=== PATIENT | male | born 1975 | race American Indian/Alaskan Native ===

== ENCOUNTER 2019-07-31 15:30 | Observation (INO) | payer OTHER ==
[2019-07-31] MEDS ORDERED: ZOFRAN IV ONE (16:25)
[2019-07-31] MEDS ORDERED: MORPHINE IV ONE ×2 (16:25→16:26)
[2019-07-31] MEDS ORDERED: NACL 0.9% 1000 ML 1,000 ML IV ONE ×2 (16:26→20:36)
--- NOTE | 2019-07-31 16:37 | Emergency Department Report ---
Vomiting/Diarrhea - HPI Duration: 3 Days Severity: mild Nausea/Vomiting Severity: None (IN ER) Diarrhea Severity: None Pain Location: RLQ Pain Severity: Mild Symptoms: Yes Able to Tolerate Fluids, No Watery Diarrhea, No Bloody diarrhea, No Fever, No Recent Unusual Foods, No Recent Untreated Water, No Recent use of Antibiotics, No Family w/ Similar Symptoms, No Contacts w/ Similar Symptoms, No Hematuria, No Recent URI Symptoms Other History: 43 YO MALE COMES TO ER WITH RLQ PAIN AND N/V FOR SEVERAL DAYS. PT THIN AND ILL APPEARING. <NOAHMannieNEIDA KWAN Dayna - Last Filed: 07/31/19 19:11> <JOÃO PEÑA - Last Filed: 07/31/19 21:36> - HPI Chief Complaint: Abdominal Pain Stated Complaint: STOMACH PAIN Time Seen by Provider: 07/31/19 16:02 ED Review of Systems ROS: Stated complaint: STOMACH PAIN Other details as noted in HPI Comment: All other systems reviewed and negative <NEIDA LAGUNA Dayna - Last Filed: 07/31/19 19:11> ROS: Stated complaint: STOMACH PAIN Other details as noted in HPI <JOÃO PEÑA - Last Filed: 07/31/19 21:36> ED Past Medical Hx - Past Medical History Previous Medical History?: No - Surgical History Past Surgical History?: No - Family History Family history: no significant - Social History Smoking Status: Current Every Day Smoker Substance Use Type: Marijuana <LOLISBlackMannieNEIDA KWAN Dayna - Last Filed: 07/31/19 19:11> Vomiting Diarrhea Exam - Exam General: Vital signs noted. No distress. Alert and acting appropriately. HEENT: No Pharyngeal Erythema, No Pharyngeal Exudates Neck: No Adenopathy, No Rigidity Lungs: Yes Clear Lung Sounds, Yes Good Air Exchange, No Wheezes, No Stridor Heart exam: Regular: Yes, Tachycardia: Yes Abdomen: Tenderness: No, Peritoneal Signs: No, Distention: No, Hyperactive Bowel sounds: No Skin exam: Rash: No Neurologic: Alert and oriented, no deficits. Musculoskeletal: Unremarkable. <NEIDA LAGUNA Dayna - Last Filed: 07/31/19 19:11> - Exam General: Vital signs noted. No distress. Alert and acting appropriately. Neurologic: Alert and oriented, no deficits. Musculoskeletal: Unremarkable. <JOÃO PEÑA - Last Filed: 07/31/19 21:36> ED Course Vital Signs 07/31/19 15:44 Temperature 99.1 F Pulse Rate 113 H Respiratory 20 Rate Blood Pressure 143/80 [Right] O2 Sat by Pulse 98 Oximetry - Reevaluation(s) Reevaluation #1: 07/31/19 18:58 S[facility]A SUP IN RAD NO [id number] WAS CONTACTED BY MYSELF SHE HERSELF TOLD THE STAFF NOT TO SCAN THIS PT DUE TO CONFLICT IN HIS NAME FIRST NAME IS LAST AND VICE VERSA OTHER IDENTIFIERS CORRECT THIS WAS NOTED WHEN PT ARRIVED TO ACC REG. WAS NOTIFIED AND IF THEY CHANGE THE NAME NOW IT WILL DELETE THE CURRENT ACCOUNT AND ALL ASSOCIATED INFORMATION. THEIR REC. IS TO COMPLETE CARE ON THIS ACCOUNT AND WHEN PT DC HE WILL HAVE A NEW ACCOUNT MADE AND THEN THE 2 ACCOUNTS MERGED AND ALL CARE DATA POINTS WILL BE AVAILABLE. I'VE ASKED MS SWAN IF THE CT CAN NOT BE DONE- TO CALL HI LOW TRUCK DRIVER IN REG TO WORK OUT HOW TO HANDLE THIS ENCOUNTER SO THE PT RECEIVES CARE TIMELY DR MIKE ORDERED SCAN AT 1625 <NEIDA LAGUNA - Last Filed: 07/31/19 19:11> Vital Signs 07/31/19 15:44 Temperature 99.1 F Pulse Rate 113 H Respiratory 20 Rate Blood Pressure 143/80 [Right] O2 Sat by Pulse 98 Oximetry <MARIANAJOÃO - Last Filed: 07/31/19 21:36> ED Medical Decision Making - Lab Data Result diagrams: 07/31/19 17:30 07/31/19 17:30 - Medical Decision Making Labs 07/31/19 07/31/19 07/31/19 16:19 17:30 17:30 WBC 9.4 RBC 4.57 Hgb 14.7 Hct 43.5 MCV 95 H MCH 32 MCHC 34 RDW 13.0 L Plt Count 209 Lymph % (Auto) 5.5 L [place] % (Auto) 7.6 H Eos % (Auto) 0.0 Baso % (Auto) 0.1 Lymph # 0.5 L [place] # 0.7 Eos # 0.0 Baso # 0.0 Seg Neutrophils % 86.8 H Seg Neutrophils # 8.1 H Sodium 140 Potassium 4.1 Chloride 103.5 Carbon Dioxide 27 Anion Gap 14 BUN 17 Creatinine 1.1 Estimated GFR > 60 BUN/Creatinine Ratio 15 Glucose 93 Calcium 8.2 L Total Bilirubin 0.80 AST 26 ALT 33 Alkaline Phosphatase 57 Total Protein 7.0 Albumin 4.2 Albumin/Globulin Ratio 1.5 Lipase 9 L Urine Color Yellow Urine Turbidity Clear Urine pH 6.0 Ur Specific [place] 1.034 H Urine Protein 30 mg/dl Urine Glucose (UA) Neg Urine Ketones 20 Urine Blood Neg Urine Nitrite Neg Urine Bilirubin Neg Urine Urobilinogen < 2.0 Ur Leukocyte Esterase Neg Urine WBC (Auto) 1.0 Urine RBC (Auto) 4.0 U Epithel Cells (Auto) < 1.0 Urine Mucus 3+ Vital Signs 07/31/19 15:44 Temperature 99.1 F Pulse Rate 113 H Respiratory 20 Rate Blood Pressure 143/80 [Right] O2 Sat by Pulse 98 Oximetry <LOLISBlackMannieSHEREELONNIENEIDA A - Last Filed: 07/31/19 19:11> - Lab Data Result diagrams: 07/31/19 17:30 07/31/19 17:30 - Radiology Data Radiology results: report reviewed, image reviewed Findings [facility] [address] [place] [address] Cat Scan Report Signed Patient: EARL BLAKE MR#: [id number] : 1975 Acct:[id number] Age/Sex: 43 / M ADM Date: 07/31/19 Loc: ED Attending Dr: Ordering Physician: Tonya Bolaños MD Date of Service: 07/31/19 Procedure(s): CT abdomen pelvis w con Accession Number(s): [id number] cc: Tonya Bolaños MD CT abdomen pelvis w con INDICATION: RLQ pain tenderness . TECHNIQUE: All CT scans at this location are performed using CT dose reduction for ALARA by means of automated exposure control. COMPARISON: None available. FINDINGS: Lung bases are clear. Mild hepatic steatosis, but no focal liver lesions. Gallbladder, spleen, pancreas, kidneys and adrenals are negative. Abdominal aorta is normal in size. Pelvis Appendix is somewhat difficult to evaluate in this thin patient, but the appendix certainly appears to be abnormally distended, measuring at least 1 cm in diameter, and edematous. No free fluid. Urinary bladder is unremarkable. No skeletal lesions. IMPRESSION: 1. Distended and slightly edematous appendix, consistent with early/mild appendicitis. Findings were discussed with Dr. Lobato at 2008 hours EDT. Signer Name: Jermain Martinez MD Signed: 07/31/2019 8:08 PM Workstation Name: [id number] Transcribed By: TM Dictated By: Jermain Martinez MD Electronically Authenticated By: Jermain Martinez MD Signed Date/Time: 07/31/192007 DD/ 55 TD/TT: - Medical Decision Making I assumed care of the patient from Neida Crook NP at shift change at 1900 hrs. Patient had presented to the ED with acute onset persistent severe right lower quadrant pain with intractable nausea and vomiting for over 12 hours. Lab test results were reviewed and are all nonactionable. Abdomen pelvis CT scan with contrast pending. Patient's pain is well-controlled at this time having been treated with up to 8 mg of morphine IV with Zofran 4 mg IV. We will reevaluate. The abdomen pelvis CT scan with contrast results show distended and slightly edematous appendix, consistent with early/mild appendicitis. These results were discussed with the ED attending Physician Dr. Lobato who advised that the General Surgeon precision machine operator be paged. Patient advised to remain NPO after midnight. I paged Dr. Farr, the General Surgeon precision machine operator regarding the patient's findings. I discussed the patient's case with the general surgeon precision machine operator Dr. Farr who advised that the hospitalist physician on-call admit the patient for a surgical consult in the morning. Dr. Farr also advised that the patient be maintained nothing by mouth and started on Zosyn normal saline as well as with pain medication as needed. I patient and discussed the patient's case with the hospitalist physician precision machine operator who admitted the patient to the hospital. - Differential Diagnosis acute appendicitis; Colitis; Kidney stones; acute UTI <JOÃO PEÑA - Last Filed: 07/31/19 21:36> Critical care attestation.: If time is entered above; I have spent that time in minutes in the direct care of this critically ill patient, excluding procedure time. <NEIDA LAGUNA - Last Filed: 07/31/19 19:11> Critical care attestation.: If time is entered above; I have spent that time in minutes in the direct care of this critically ill patient, excluding procedure time. <JOÃO PEÑA - Last Filed: 07/31/19 21:36> ED Disposition Is pt being admited?: No Does the pt Need Aspirin: No Time of Disposition: 18:42 <JEANNIEANIYANEIDA Dayna - Last Filed: 07/31/19 19:11> Is pt being admited?: Yes Does the pt Need Aspirin: No Time of Disposition: 21:35 <JOÃO PEÑA - Last Filed: 07/31/19 21:36> Clinical Impression: Nausea and vomiting in adult patient Abdominal pain Qualifiers: Abdominal location: right lower quadrant Qualified Code(s): R10.31 - Right lower quadrant pain Acute appendicitis Qualifiers: Acute appendicitis type: unspecified acute appendicitis type Qualified Code(s): K35.80 - Unspecified acute appendicitis Disposition: OP ADMIT IP TO THIS HOSP Condition: Stable Additional Instructions: HDYRATE WELL WITH WATER MEDS ORDERED TODAY FOLLOW UP WITH PCP- REFERRAL BELOW FOLLOW UP WITH GI - REFERRAL BELOW Referrals: KAREN MORRIS MD [Staff Physician] - 3-5 Days JULIUS MONTOYA MD [Staff Physician] - 3-5 Days JUAN LUIS SALVADOR MD [Staff Physician] - 3-5 Days CANDIS SAMPSON MD [Staff Physician] - 3-5 Days Print Language: MACEDONIAN
[2019-07-31 16:47] LABS: Bilirubin,Urine NEG (Negative); Blood,Urine NEG (Negative); Color,Urine Yellow (Yellow); Mucus,Urine 3+ /HPF; Urobilinogen,Urine < 2.0 mg/dL (<2.0)
[2019-07-31 17:55] LABS: Basophils % (Auto) 0.1 % (0.0-1.8); Hematocrit 43.5 % (35.5-45.6); Hemoglobin 14.7 gm/dl (11.8-15.2); Lymphocytes # (Auto) 0.5 K/mm3 (1.2-5.4); Lymphocytes % (Auto) 5.5 % (13.4-35.0); Mean Corpuscular HGB Conc 34 % (32-34); Mean Corpuscular Volume 95 fl (84-94); Monocytes # (Auto) 0.7 K/mm3 (0.0-0.8); Monocytes % (Auto) 7.6 % (0.0-7.3); Platelet Count 209 K/mm3 (140-440); Red Blood Count 4.57 M/mm3 (3.65-5.03)
[2019-07-31 18:20] LABS: Alanine Aminotransferase 33 units/L (7-56); Albumin 4.2 g/dL (3.9-5); BUN/Creatinine Ratio 15; Blood Urea Nitrogen 17 mg/dL (9-20); Calcium 8.2 mg/dL (8.4-10.2); Hemolysis Index 11
--- NOTE | 2019-07-31 20:13 | Cat Scan Report ---
CT abdomen pelvis w con INDICATION: RLQ pain tenderness . TECHNIQUE: All CT scans at this location are performed using CT dose reduction for ALARA by means of automated e xposure control. COMPARISON: None available. FINDINGS: Lung bases are clear. Mild hepatic steatosis, but no focal liver lesions. Gallbladder, spleen, pancre as, kidneys and adrenals are negative. Abdominal aorta is normal in size. Pelvis Appendix is somewhat difficult to evaluate in this thin patient, but the appendix certainly appears t o be abnormally distended, measuring at least 1 cm in diameter, and edematous. No free fluid. Urinary bladder is unremarkable. No skeletal lesions. IMPRESSION: 1. Distended and slightly edematous appendix, consistent with early/mild appendicitis. Findings were discussed with Dr. Lobato at 2008 hours EDT. Signer Name: Jermain Martinez MD Signed: 07/31/2019 8:08 PM Workstation Name: [id number]
[2019-07-31] MEDS ORDERED: ZOSYN/NS 4.5GM/100ML 4.5 GM/100 ML VIAL IV ONE (20:31)
[2019-07-31] MEDS ORDERED: SODIUM CHLORIDE FLUSH SYRINGE 10 ML IV PRN (21:32)
[2019-07-31] MEDS ORDERED: TYLENOL PO PRN (21:32)
[2019-07-31] MEDS ORDERED: ZOFRAN IV PRN (21:32)
--- NOTE | 2019-07-31 21:42 | History and Physical Report ---
History of Present Illness Chief complaint: Right lower quadrant abdominal pain History of present illness: 43-year-old man presents to the hospital with 1 day of right lower quadrant pain in his abdomen. States that the pain has been mostly mild, but progressive, he has bouts where it is moderate to severe. At this moment he rates the pain 3 out of 10, but has received multiple doses of morphine in the ER. The patient denies nausea or vomiting, he is very to tolerate fluids. Denies diarrhea denie s hematochezia. No fevers, denies eating any unusual foods, all food and the left standing. Denies recent travel or drinking untreated water. No recent use of antibiotics. No sick contacts. Past History Past Medical History: No medical history Past Surgical History: No surgical history Social history: smoking (Current every day smoker,), other ( admits to marijuana use.) Family history: no significant family history Medications and Allergies Allergies Allergy/AdvReac Type Severity Reaction Status Date / Time No Known Allergies Allergy Verified 07/31/19 15:45 Active Meds: Active Medications Acetaminophen (Tylenol) 650 mg PO Q4H PRN PRN Reason: Pain MILD(1-3)/Fever >100.5/QUIROS Hydromorphone HCl (Dilaudid) 0.5 mg IV Q3H PRN PRN Reason: Pain , Severe (7-10) Sodium Chloride (Nacl 0.45% 1000 Ml) 1,000 mls @ 125 mls/hr IV DIRECT SILVANO Piperacillin Sod/Tazobactam Sod (Zosyn/Ns 4.5gm/100ml) 4.5 gm in 100 mls @ 200 mls/hr IV Q8HR SILVANO; Protocol Ondansetron HCl (Zofran) 4 mg IV Q4H PRN PRN Reason: Nausea And Vomiting Sodium Chloride (Sodium Chloride Flush Syringe 10 Ml) 10 ml IV BID SILVANO Sodium Chloride (Sodium Chloride Flush Syringe 10 Ml) 10 ml IV PRN PRN PRN Reason: LINE FLUSH Review of Systems All systems: negative Constitutional: no fever Ears, nose, mouth and throat: no ear pain Cardiovascular: no chest pain Respiratory: no cough Gastrointestinal: abdominal pain, no vomiting, no diarrhea Genitourinary Male: no dysuria Rectal: no pain Musculoskeletal: no neck stiffness Integumentary: no rash Neurological: no head injury Psychiatric: no anxiety Endocrine: no cold intolerance Hematologic/Lymphatic: no easy bruising Allergic/Immunologic: no urticaria Exam - Constitutional Vitals: Temp Pulse Resp BP Pulse Ox 99.1 F 113 H 20 143/80 98 07/31/19 15:44 07/31/19 15:44 07/31/19 15:44 07/31/19 15:44 07/31/19 15:44 General appearance: Present: no acute distress, well-nourished - EENT Eyes: Present: PERRL ENT: hearing intact, clear oral mucosa - Neck Neck: Present: supple, normal ROM - Respiratory Respiratory effort: normal Respiratory: bilateral: CTA - Cardiovascular Heart Sounds: Present: S1 & S2. Absent: rub, click - Extremities Extremities: pulses symmetrical, No edema Peripheral Pulses: within normal limits - Abdominal General gastrointestinal: Present: soft, tender (rlq), non-distended, normal bowel sounds Male genitourinary: Present: normal - Integumentary Integumentary: Present: clear, warm, dry - Musculoskeletal Musculoskeletal: gait normal, strength equal bilaterally - Psychiatric Psychiatric: appropriate mood/affect, intact judgment & insight - Neurologic Neurologic: CNII-XII intact, moves all extremities Results - Labs CBC & Chem 7: 07/31/19 17:30 07/31/19 17:30 Labs: Laboratory Last Values WBC 9.4 K/mm3 (4.5-11.0) 07/31/19 17:30 RBC 4.57 M/mm3 (3.65-5.03) 07/31/19 17:30 Hgb 14.7 gm/dl (11.8-15.2) 07/31/19 17:30 Hct 43.5 % (35.5-45.6) 07/31/19 17:30 MCV 95 fl (84-94) H 07/31/19 17:30 MCH 32 pg (28-32) 07/31/19 17:30 MCHC 34 % (32-34) 07/31/19 17:30 RDW 13.0 % (13.2-15.2) L 07/31/19 17:30 Plt Count 209 K/mm3 (140-440) 07/31/19 17:30 Lymph % (Auto) 5.5 % (13.4-35.0) L 07/31/19 17:30 [place] % (Auto) 7.6 % (0.0-7.3) H 07/31/19 17:30 Eos % (Auto) 0.0 % (0.0-4.3) 07/31/19 17:30 Baso % (Auto) 0.1 % (0.0-1.8) 07/31/19 17:30 Lymph # 0.5 K/mm3 (1.2-5.4) L 07/31/19 17:30 [place] # 0.7 K/mm3 (0.0-0.8) 07/31/19 17:30 Eos # 0.0 K/mm3 (0.0-0.4) 07/31/19 17:30 Baso # 0.0 K/mm3 (0.0-0.1) 07/31/19 17:30 Seg Neutrophils % 86.8 % (40.0-70.0) H 07/31/19 17:30 Seg Neutrophils # 8.1 K/mm3 (1.8-7.7) H 07/31/19 17:30 Sodium 140 mmol/L (137-145) 07/31/19 17:30 Potassium 4.1 mmol/L (3.6-5.0) 07/31/19 17:30 Chloride 103.5 mmol/L (98-107) 07/31/19 17:30 Carbon Dioxide 27 mmol/L (22-30) 07/31/19 17:30 Anion Gap 14 mmol/L 07/31/19 17:30 BUN 17 mg/dL (9-20) 07/31/19 17:30 Creatinine 1.1 mg/dL (0.8-1.5) 07/31/19 17:30 Estimated GFR > 60 ml/min 07/31/19 17:30 BUN/Creatinine Ratio 15 % 07/31/19 17:30 Glucose 93 mg/dL (75-100) 07/31/19 17:30 Calcium 8.2 mg/dL (8.4-10.2) L 07/31/19 17:30 Total Bilirubin 0.80 mg/dL (0.1-1.2) 07/31/19 17:30 AST 26 units/L (5-40) 07/31/19 17:30 ALT 33 units/L (7-56) 07/31/19 17:30 Alkaline Phosphatase 57 units/L (35-129) 07/31/19 17:30 Total Protein 7.0 g/dL (6.3-8.2) 07/31/19 17:30 Albumin 4.2 g/dL (3.9-5) 07/31/19 17:30 Albumin/Globulin Ratio 1.5 % 07/31/19 17:30 Lipase 9 units/L (13-60) L 07/31/19 17:30 Urine Color Yellow (Yellow) 07/31/19 16:19 Urine Turbidity Clear (Clear) 07/31/19 16:19 Urine pH 6.0 (5.0-7.0) 07/31/19 16:19 Ur Specific [place] 1.034 (1.003-1.030) H 07/31/19 16: Urine Protein 30 mg/dl mg/dL (Negative) 07/31/19 16:19 Urine Glucose (UA) Neg mg/dL (Negative) 07/31/19 16: Urine Ketones 20 mg/dL (Negative) 07/31/19 16:19 Urine Blood Neg (Negative) 07/31/19 16:19 Urine Nitrite Neg (Negative) 07/31/19 16:19 Urine Bilirubin Neg (Negative) 07/31/19 16:19 Urine Urobilinogen < 2.0 mg/dL (<2.0) 07/31/19 16:19 Ur Leukocyte Esterase Neg (Negative) 07/31/19 16:19 Urine WBC (Auto) 1.0 /HPF (0.0-6.0) 07/31/19 16:19 Urine RBC (Auto) 4.0 /HPF (0.0-6.0) 07/31/19 16:19 U Epithel Cells (Auto) < 1.0 /HPF (0-13.0) 07/31/19 16:19 Urine Mucus 3+ /HPF 07/31/19 16:19 Assessment and Plan Assessment and plan: 43-year-old man who presents to the hospital with abdominal pain in his right lower quadrant x3 days. CT abdomen and pelvis Distended and slightly edematous appendix consistent with early/mild ap pendicitis. Acute appendicitis ER physician already spoke to general surgery. They will see him in the morning Keep n.p.o., empiric antibiotics, IV fluids DVT prophylaxis SCDs and early ambulation Plan of care discussed with patient/family: Yes
[2019-07-31] MEDS: ZOSYN/NS 4.5GM/100ML 4.5 GM/100 ML VIAL IV SCH (22:55)
[2019-08-01] MEDS: NACL 0.45% 1000 ML 1,000 ML IV SCH ×2 (00:21→10:14)
[2019-08-01] MEDS: SODIUM CHLORIDE FLUSH SYRINGE 10 ML IV SCH ×2 (00:21→10:15)
[2019-08-01] MEDS: DILAUDID IV PRN ×2 (00:51→10:13)
[2019-08-01] MEDS: ZOSYN/NS 4.5GM/100ML 4.5 GM/100 ML VIAL IV SCH ×2 (05:18→14:50)
[2019-08-01 06:19] LABS: BUN/Creatinine Ratio 11; Blood Urea Nitrogen 13 mg/dL (9-20); Calcium 7.5 mg/dL (8.4-10.2); Hemolysis Index 3
[2019-08-01] MEDS ORDERED: PROTONIX IV SCH (10:00)
[2019-08-01] MEDS ORDERED: HABITROL TD SCH (10:00)
--- NOTE | 2019-08-01 10:53 | Consultation ---
History of Present Illness Consult date: 08/01/19 Reason for consult: abdominal pain Chief complaint: abdominal pain - History of present illness History of present illness: 43 yo M with no PMHx presents to ER with RLQ abdominal pain for 1 day. He states the pain started suddenly and has been sharp, constant, nonradiating. No alleviating or exacerbating factors. +n/v (nonbloody/nonbilious). He has never had pain like this before. No Cp, SOB, f/c. Past History Past Medical History: No medical history Past Surgical History: No surgical history Social history: smoking (Current every day smoker,), other ( admits to marijuana use.) Family history: no significant family history Medications and Allergies Allergies Allergy/AdvReac Type Severity Reaction Status Date / Time No Known Allergies Allergy Verified 07/31/19 15:45 Home Medications Medication Instructions Recorded Confirmed Last Taken Type No Known Home Medications [No 08/01/19 08/01/19 Unknown History Reported Home Medications] Active Meds: Active Medications Acetaminophen (Tylenol) 650 mg PO Q4H PRN PRN Reason: Pain MILD(1-3)/Fever >100.5/QUIROS Hydromorphone HCl (Dilaudid) 0.5 mg IV Q3H PRN PRN Reason: Pain , Severe (7-10) Last Admin: 08/01/19 10:13 Dose: 0.5 mg Documented by: Sodium Chloride (Nacl 0.45% 1000 Ml) 1,000 mls @ 125 mls/hr IV DIRECT SILVANO Last Admin: 08/01/19 10:14 Dose: 125 mls/hr Documented by: Piperacillin Sod/Tazobactam Sod (Zosyn/Ns 4.5gm/100ml) 4.5 gm in 100 mls @ 200 mls/hr IV Q8HR [facility]; Protocol Last Admin: 08/01/19 05:18 Dose: 200 mls/hr Documented by: Nicotine (Habitrol) 14 mg TD QDAY [facility] Last Admin: 08/01/19 10:13 Dose: 14 mg Documented by: Ondansetron HCl (Zofran) 4 mg IV Q4H PRN PRN Reason: Nausea And Vomiting Last Admin: 08/01/19 00:51 Dose: 4 mg Documented by: Pantoprazole Sodium (Protonix) 40 mg IV QDAY [facility] Last Admin: 08/01/19 10:14 Dose: 40 mg Documented by: Sodium Chloride (Sodium Chloride Flush Syringe 10 Ml) 10 ml IV BID SILVANO Last Admin: 08/01/19 10:15 Dose: 10 ml Documented by: Sodium Chloride (Sodium Chloride Flush Syringe 10 Ml) 10 ml IV PRN PRN PRN Reason: LINE FLUSH Review of Systems All systems: negative (10 pt ROS performed and negative except for that listed in HPI) Exam Vital Signs Temp Pulse Resp BP Pulse Ox 99.1 F 113 H 20 143/80 98 07/31/19 15:44 07/31/19 15:44 07/31/19 15:44 07/31/19 15:44 07/31/19 15:44 Narrative exam: Gen: AAOx3. NAD ENT: no scleral icterus or conjunctival pallor CV; S1, S2+ Resp: even and unlabored Abd: soft, ND, +RLQ TTP with voluntary guarding. No rebound or rigidity. Ext: no c/c/e Results - Labs 07/31/19 17:30 08/01/19 04:44 Abnormal lab results 07/31/19 07/31/19 07/31/19 Range/Units 16:19 17:30 17:30 MCV 95 H (84-94) fl RDW 13.0 L (13.2-15.2) % Lymph % (Auto) 5.5 L (13.4-35.0) % [place] % (Auto) 7.6 H (0.0-7.3) % Lymph # 0.5 L (1.2-5.4) K/mm3 Seg Neutrophils % 86.8 H (40.0-70.0) % Seg Neutrophils # 8.1 H (1.8-7.7) K/mm3 Calcium 8.2 L (8.4-10.2) mg/dL Lipase 9 L (13-60) units/L Ur Specific [place] 1.034 H (1.003-1.030) 08/01/19 Range/Units 04:44 MCV (84-94) fl RDW (13.2-15.2) % Lymph % (Auto) (13.4-35.0) % [place] % (Auto) (0.0-7.3) % Lymph # (1.2-5.4) K/mm3 Seg Neutrophils % (40.0-70.0) % Seg Neutrophils # (1.8-7.7) K/mm3 Calcium 7.5 L (8.4-10.2) mg/dL Lipase (13-60) units/L Ur Specific [place] (1.003-1.030) Diabetes panel 07/31/19 08/01/19 Range/Units 17:30 04:44 Sodium 140 138 (137-145) mmol/L Potassium 4.1 3.6 (3.6-5.0) mmol/L Chloride 103.5 103.8 (98-107) mmol/L Carbon Dioxide 27 26 (22-30) mmol/L BUN 17 13 (9-20) mg/dL Creatinine 1.1 1.2 (0.8-1.5) mg/dL Glucose 93 97 (75-100) mg/dL Calcium 8.2 L 7.5 L (8.4-10.2) mg/dL AST 26 (5-40) units/L ALT 33 (7-56) units/L Alkaline Phosphatase 57 (35-129) units/L Total Protein 7.0 (6.3-8.2) g/dL Albumin 4.2 (3.9-5) g/dL Calcium panel 07/31/19 08/01/19 Range/Units 17:30 04:44 Calcium 8.2 L 7.5 L (8.4-10.2) mg/dL Albumin 4.2 (3.9-5) g/dL Pituitary panel 07/31/19 08/01/19 Range/Units 17:30 04:44 Sodium 140 138 (137-145) mmol/L Potassium 4.1 3.6 (3.6-5.0) mmol/L Chloride 103.5 103.8 (98-107) mmol/L Carbon Dioxide 27 26 (22-30) mmol/L BUN 17 13 (9-20) mg/dL Creatinine 1.1 1.2 (0.8-1.5) mg/dL Glucose 93 97 (75-100) mg/dL Calcium 8.2 L 7.5 L (8.4-10.2) mg/dL Adrenal panel 07/31/19 08/01/19 Range/Units 17:30 04:44 Sodium 140 138 (137-145) mmol/L Potassium 4.1 3.6 (3.6-5.0) mmol/L Chloride 103.5 103.8 (98-107) mmol/L Carbon Dioxide 27 26 (22-30) mmol/L BUN 17 13 (9-20) mg/dL Creatinine 1.1 1.2 (0.8-1.5) mg/dL Glucose 93 97 (75-100) mg/dL Calcium 8.2 L 7.5 L (8.4-10.2) mg/dL Total Bilirubin 0.80 (0.1-1.2) mg/dL AST 26 (5-40) units/L ALT 33 (7-56) units/L Alkaline Phosphatase 57 (35-129) units/L Total Protein 7.0 (6.3-8.2) g/dL Albumin 4.2 (3.9-5) g/dL - Imaging CT scan - abdomen: report reviewed, image reviewed CT scan - pelvis: report reviewed, image reviewed Assessment and Plan 43 yo M with acute appendicitis without abscess or perforation Plan: 1. NPO 2. IVF 3. IV abx 4. prn pain and nausea control 5. DVT ppx 6. recommend appendectomy. Discussed all risks, benefits, alternatives to surgery with patient and questions answered. Consent obtained for laparoscopic appendectomy, possible open, possible colon resection. Patient will call and inform his mother/NOK. Patient added to OR schedule for today. Thank you, please call with questions.
[2019-08-01] MEDS ORDERED: MARCAINE 0.5% INFILTRATI ONE ×2 (13:23→17:07)
[2019-08-01] MEDS ORDERED: XYLOCAINE 1% 20 mL ONE (13:24)
--- NOTE | 2019-08-01 14:07 | Anesthesia Day of Surgery ---
Anesthesia Day of Surgery - Day of Surgery Patient Examined: Yes Patient H&P Reviewed: Yes Patient is NPO: Yes
--- NOTE | 2019-08-01 14:07 | Anesthesia Consultation ---
Anesthesia Consult and Med Hx Date of service: 08/01/19 - Airway Anesthetic Teeth Evaluation: Good ROM Head & Neck: Adequate Mental/Hyoid Distance: Adequate Mallampati Class: Class II Intubation Access Assessment: Good - Pulmonary Exam CTA: Yes - Cardiac Exam Cardiac Exam: RRR - Pre-Operative Health Status ASA Pre-Surgery Classification: ASA1 Proposed Anesthetic Plan: General - Pulmonary Hx Asthma: No COPD: No Hx Pneumonia: No - Central Nervous System Hx Psychiatric Problems: No - Endocrine Hx End Stage Renal Disease: No
[2019-08-01] MEDS ORDERED: LACTATED RINGERS 1,000 ML IV SCH (15:00)
[2019-08-01] MEDS ORDERED: VERSED IV NR (15:00)
[2019-08-01] MEDS ORDERED: ZEMURON IV ONE (15:23)
[2019-08-01] MEDS ORDERED: ZOFRAN ONE (15:23)
[2019-08-01] MEDS ORDERED: DECADRON ONE (15:23)
[2019-08-01] MEDS ORDERED: XYLOCAINE MPF 2% ONE (15:23)
[2019-08-01] MEDS ORDERED: TORADOL ONE (15:23)
[2019-08-01] MEDS ORDERED: QUELICIN ONE (15:23)
[2019-08-01] MEDS ORDERED: DIPRIVAN 10 MG/ML IV ONE (15:23)
[2019-08-01] MEDS ORDERED: SUBLIMAZE ONE ×2 (15:24)
[2019-08-01] MEDS ORDERED: ROBINUL ONE (16:16)
[2019-08-01] MEDS ORDERED: BLOXIVERZ ONE (16:16)
--- NOTE | 2019-08-01 16:44 | Post Operative Note ---
Date of procedure: 08/01/19 Pre-op diagnosis: acute appendicitis Post-op diagnosis: same Findings: inflamed and dilated appendix, nonperforated Procedure: laparoscopic appendectomy Anesthesia: GETA, local Surgeon: JH MILLAN Estimated blood loss: minimal Pathology: list (appendix) Specimen disposition: to lab Condition: stable Disposition: PACU
[2019-08-01] MEDS ORDERED: XYLOCAINE 1% 20 mL INFILTRATI ONE (17:08)
--- NOTE | 2019-08-01 17:10 | Discharge Summary ---
Providers - Providers Date of Admission: 07/31/19 21:32 Date of discharge: 08/01/19 Attending physician: SUDHIR ARIAS 07/31/19 20:33 Consult to Physician [CONS] Stat Comment: Consulting Provider: JH MILLAN Physician Instructions: Reason For Exam: Acute Appendicitis Primary care physician: PLUG PASTER Hospitalization Condition: Fair Disposition: DC-01 TO HOME OR SELFCARE Core Measure Documentation - Palliative Care Palliative Care/ Comfort Measures: Not Applicable Exam - Constitutional Vitals: Temp Pulse Resp BP Pulse Ox 97.3 F L 64 16 112/67 100 08/01/19 14:20 08/01/19 14:20 08/01/19 14:20 08/01/19 14:20 08/01/19 14:20 Plan Diet: regular Plan of Treatment: 1.Follow up with PCP or [facility] in 1 week. 2.Follow up with Dr. Millan, Surg in 1 week Prescriptions: oxyCODONE /ACETAMINOPHEN [Percocet 5/325] 1 tab PO Q6HR PRN #15 tablet PRN Reason: Pain
[2019-08-01] MEDS: PERCOCET 5/325 PO PRN (18:23)
--- NOTE | 2019-08-01 21:17 | Operative Report ---
PREOPERATIVE DIAGNOSIS: Acute appendicitis. POSTOPERATIVE DIAGNOSIS: Acute appendicitis. FINDINGS: Inflamed and dilated appendix, nonperforated. PROCEDURE: Laparoscopic appendectomy. ANESTHESIA: General endotracheal anesthesia, local. SURGEON: Rajni Farr DO ESTIMATED BLOOD LOSS: Minimal. PATHOLOGY: Appendix. SPECIMEN DISPOSITION: To lab. CONDITION ON DISCHARGE: The patient is stable to PACU. HISTORY OF PRESENT ILLNESS AND INDICATION: The patient is a 43-year-old male who presented to the hospital with complaints of acute onset right lower quadrant abdominal pain, nonradiating, sharp that started suddenly. He was found to have normal laboratory values; however, did have appendicitis seen on CT scan of the abdomen and pelvis. Appendectomy was recommended. All risks, benefits and alternatives to surgery were discussed with the patient and questions answered. Consent was obtained. PROCEDURE IN DETAIL: The patient was identified in the preoperative area and taken back to the operating room and placed on the operating table in supine position. After anesthesia was induced, the left arm was tucked and all bony prominences padded. A Lea catheter was sterilely placed by the circulating nurse. The abdomen was then prepped and draped in the usual sterile fashion. Timeout was performed. Local anesthetic was infiltrated into all skin incision sites. A 5 mm incision was made above the umbilicus through which a Veress needle was inserted. The Veress needle position was confirmed using saline drop test and the abdomen insufflated to 15 mmHg. Once the abdomen was insufflated, the Veress needle was removed and a 5 mm Optiview trocar was placed through this incision. Abdomen was inspected. There was no underlying injury to any of the abdominal structures. The patient was then placed in Trendelenburg and tilted to the left. The area of the right lower quadrant, the cecum was identified and there were omental adhesions to the abdominal wall, obscuring the appendix. An additional 5 mm suprapubic and a 12 mm left lower quadrant trocars were placed under direct visualization. The omental adhesions were taken down bluntly and then from the appendix by ligating the adhesed omentum using the Harmonic scalpel. The appendix was then visualized and appeared dilated all the way to the base. It was very inflamed towards the distal one third tip. There was no evidence of perforation or free fluid in the abdomen. The appendix was grasped and retracted cephalad. The mesoappendix was ligated using the Harmonic scalpel and the dissection was carried down to the base of the appendix. Once the base was clearly identified, it was transected using [place] Flex 45 mm white load stapler. The appendix was placed into an EndoCatch bag along with some transected omentum and removed via the 12 mm port. The staple line and mesoappendix were examined and there was no bleeding seen. The patient was placed into neutral position and the 12 mm port fascia was closed with interrupted 0 Vicryl suture using Darnell-Mayelin device. The remainder of the ports were removed under direct visualization and the skin incisions once again infiltrated with local anesthetic. The skin was closed with 4-0 Monocryl subcuticular stitches and skin glue after careful hemostasis was ensured. At the end of the case, all sponge, instrument, sharp counts were correct x 2. Lae catheter was removed. The patient was awoken from anesthesia and taken to PACU in stable condition. JOB# [id number] DANIELA/LILLIAM
--- NOTE | 2019-08-01 23:04 | Progress Note ---
Hospitalist Physical - Constitutional Vitals: Temp Pulse Resp BP Pulse Ox 98.3 F 79 16 117/70 97 08/01/19 19:13 08/01/19 19:13 08/01/19 19:13 08/01/19 19:13 08/01/19 19:13 General appearance: Present: no acute distress, well-nourished Results - Labs CBC & Chem 7: 07/31/19 17:30 08/01/19 04:44 Labs: Laboratory Last Values WBC 9.4 K/mm3 (4.5-11.0) 07/31/19 17:30 RBC 4.57 M/mm3 (3.65-5.03) 07/31/19 17:30 Hgb 14.7 gm/dl (11.8-15.2) 07/31/19 17:30 Hct 43.5 % (35.5-45.6) 07/31/19 17:30 MCV 95 fl (84-94) H 07/31/19 17:30 MCH 32 pg (28-32) 07/31/19 17:30 MCHC 34 % (32-34) 07/31/19 17:30 RDW 13.0 % (13.2-15.2) L 07/31/19 17:30 Plt Count 209 K/mm3 (140-440) 07/31/19 17:30 Lymph % (Auto) 5.5 % (13.4-35.0) L 07/31/19 17:30 [place] % (Auto) 7.6 % (0.0-7.3) H 07/31/19 17:30 Eos % (Auto) 0.0 % (0.0-4.3) 07/31/19 17:30 Baso % (Auto) 0.1 % (0.0-1.8) 07/31/19 17:30 Lymph # 0.5 K/mm3 (1.2-5.4) L 07/31/19 17:30 [place] # 0.7 K/mm3 (0.0-0.8) 07/31/19 17:30 Eos # 0.0 K/mm3 (0.0-0.4) 07/31/19 17:30 Baso # 0.0 K/mm3 (0.0-0.1) 07/31/19 17:30 Seg Neutrophils % 86.8 % (40.0-70.0) H 07/31/19 17:30 Seg Neutrophils # 8.1 K/mm3 (1.8-7.7) H 07/31/19 17:30 Sodium 138 mmol/L (137-145) 08/01/19 04:44 Potassium 3.6 mmol/L (3.6-5.0) 08/01/19 04:44 Chloride 103.8 mmol/L (98-107) 08/01/19 04:44 Carbon Dioxide 26 mmol/L (22-30) 08/01/19 04:44 Anion Gap 12 mmol/L 08/01/19 04:44 BUN 13 mg/dL (9-20) 08/01/19 04:44 Creatinine 1.2 mg/dL (0.8-1.5) 08/01/19 04:44 Estimated GFR > 60 ml/min 08/01/19 04:44 BUN/Creatinine Ratio 11 % 08/01/19 04:44 Glucose 97 mg/dL (75-100) 08/01/19 04:44 Calcium 7.5 mg/dL (8.4-10.2) L 08/01/19 04:44 Total Bilirubin 0.80 mg/dL (0.1-1.2) 07/31/19 17:30 AST 26 units/L (5-40) 07/31/19 17:30 ALT 33 units/L (7-56) 07/31/19 17:30 Alkaline Phosphatase 57 units/L (35-129) 07/31/19 17:30 Total Protein 7.0 g/dL (6.3-8.2) 07/31/19 17:30 Albumin 4.2 g/dL (3.9-5) 07/31/19 17:30 Albumin/Globulin Ratio 1.5 % 07/31/19 17:30 Lipase 9 units/L (13-60) L 07/31/19 17:30 Urine Color Yellow (Yellow) 07/31/19 16:19 Urine Turbidity Clear (Clear) 07/31/19 16:19 Urine pH 6.0 (5.0-7.0) 07/31/19 16:19 Ur Specific [place] 1.034 (1.003-1.030) H 10/08/19 16:19 Urine Protein 30 mg/dl mg/dL (Negative) 07/31/19 16:19 Urine Glucose (UA) Neg mg/dL (Negative) 07/31/19 16:19 Urine Ketones 20 mg/dL (Negative) 07/31/19 16:19 Urine Blood Neg (Negative) 07/31/19 16:19 Urine Nitrite Neg (Negative) 07/31/19 16:19 Urine Bilirubin Neg (Negative) 07/31/19 16:19 Urine Urobilinogen < 2.0 mg/dL (<2.0) 07/31/19 16:19 Ur Leukocyte Esterase Neg (Negative) 07/31/19 16:19 Urine WBC (Auto) 1.0 /HPF (0.0-6.0) 07/31/19 16:19 Urine RBC (Auto) 4.0 /HPF (0.0-6.0) 07/31/19 16:19 U Epithel Cells (Auto) < 1.0 /HPF (0-13.0) 07/31/19 16:19 Urine Mucus 3+ /HPF 07/31/19 16:19 Active Medications - Current Medications Current Medications: Generic Name Dose Route Start Last Admin Trade Name Freq PRN Reason Stop Dose Admin Acetaminophen 650 mg 07/31/19 21:32 Tylenol PO Q4H PRN Pain MILD(1-3)/Fever >100.5/QUIROS Hydromorphone HCl 0.5 mg 07/31/19 21:32 08/01/19 10:13 Dilaudid IV 0.5 mg Q3H PRN Administration Pain , Severe (7-10) Sodium Chloride 1,000 mls @ 125 mls/hr 07/31/19 22:00 08/01/19 10:14 Nacl 0.45% 1000 Ml IV 125 mls/hr DIRECT SILVANO Administration Nicotine 14 mg 08/01/19 10:00 08/01/19 10:13 Habitrol TD 14 mg QDAY SILVANO Administration Ondansetron HCl 4 mg 07/31/19 21:32 08/01/19 00:51 Zofran IV 4 mg Q4H PRN Administration Nausea And Vomiting Oxycodone/Acetaminophen 2 tab 08/01/19 16:46 08/01/19 18:23 Percocet 5/325 PO 2 tab Q6H PRN Administration Pain, Moderate (4-6) Pantoprazole Sodium 40 mg 08/01/19 10:00 08/01/19 10:14 Protonix IV 40 mg QDAY SILVANO Administration Sodium Chloride 10 ml 07/31/19 22:00 08/01/19 10:15 Sodium Chloride Flush Syringe 10 Ml IV 10 ml BID SILVANO Administration Sodium Chloride 10 ml 07/31/19 21:32 Sodium Chloride Flush Syringe 10 Ml IV PRN PRN LINE FLUSH Nutrition/Malnutrition Assess - Dietary Evaluation Nutrition/Malnutrition Findings: Nutrition Notes Start: 08/01/19 09:48 Freq: Status: Active Protocol: Document 08/01/19 09:49 MK (Rec: 08/01/19 10:40 MK [id number]) Co-Sign 08/01/19 09:49 LP Nutrition Notes 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 Pt reports having a strong appetitie currently. Burn Absent Trauma Absent Minimum of two criteria No #1 Nutrition Diagnosis Inadequate oral intake Etiology rt appendicitis As Evidenced by Signs and Symptoms NPO Is patient on ventilator? No Is Patient Ambulatory and/or Out of Bed Yes REE-([facility]-ambulatory/OOB) [ 2121.769 NUTR.MSJOOB] Calculation Used for Recommendations [facility] Additional Notes Protein: 56-70 g (0.8-1.0g/kg) Fluid 1 ml/kcal Nutrition Intervention Change Diet Order: Advance to Regular when medically feasible Goal #1 Meet at least 85% of energy/ protein needs Anticipated Discharge Needs: Regular Follow-Up By: 08/03/19 Additional Comments F/U for intakes
--- NOTE | 2019-08-01 23:37 | Post Anesthesia Evaluation ---
- Post Anesthesia Evaluation Patient Participated: Yes Airway Patent: Yes Stable Respiratory Function: Yes Nausea/Vomiting: No Temp > 96.8F: Yes Pain Manageable: Yes Adequeate Hydration: Yes Anesthesia Complications: No Block Receding Appropriately: Not Applicable Patient on Ventilator: No
[2019-08-02] MEDS: PERCOCET 5/325 PO PRN (01:37)
[2019-08-02] MEDS: SODIUM CHLORIDE FLUSH SYRINGE 10 ML IV SCH (01:42)
[2019-08-02 08:08] VITALS: BP 122/62
--- NOTE | 2019-08-02 10:06 | Progress Note ---
Assessment and Plan 43 yo M s/p laparoscopic appendectomy, POD 1 1. reg diet 2. dc IVF 3. prn PO pain control 4. IS/pulm toilet 5. DC home Pt instructed to follow up in surgery clinic in 2 weeks. DC paperwork left on chart. Thank you, please call with questions. Subjective Date of service: 08/02/19 Narrative: Patient seen and examined. No acute complaints. Ambulating and urinating on his own. Tolerating reg diet. No f/c, n/v, abd pain. Objective Vital Signs - 12hr 08/01/19 08/02/19 08/02/19 23:38 01:12 04:27 Temperature 98.1 F 98.6 F Pulse Rate 89 86 Respiratory 18 18 Rate Blood Pressure 120/69 108/53 O2 Sat by Pulse 97 96 95 Oximetry 08/02/19 07:46 Temperature 98.0 F Pulse Rate 74 Respiratory 18 Rate Blood Pressure 122/62 O2 Sat by Pulse 100 Oximetry - General physical appearance Narrative Exam: Gen: AAOx3. NAD CV: S1, S2+ Resp: even and unlabored Abd: soft, NT, ND. incisions c/d/i Ext: no c/c/e - Labs 07/31/19 17:30 08/01/19 04:44
--- NOTE | 2019-08-02 17:10 | Event Note ---
Date: 08/02/19 Patient stable to discharge home.
== END 2019-08-02 10:30 | disposition home or self-care (01) ==
LOC: ED 15:30 → 3B-SURG 21:32
PROVIDERS: ADMIT Internal Medicine; ATTEND Internal Medicine
DX: K35.80 Unspecified acute appendicitis (principal)
CPT/HCPCS: 36415; 44970; 74177; 80048; 80053; 81001; 83690; 85025; 88304; 96365; 96366; 96375; 96376; 99284; 99406; C9113; G0378; J0330; J1100; J1170; J2250; J2270; J2405; J2543; J2704; J2710; J3010; J7030; J7120; Q9967; J1885

== ENCOUNTER 2020-01-11 20:24 | Emergency (ER) | payer SELFPAY ==
--- NOTE | 2020-01-11 21:20 | Event Note ---
ED Screening Note Date of service: 01/11/20 Time: 21:16 ED Screening Note: This is a 44 y.o. M. that presents with left sided abdominal pain since this morning. Diarrhea this morning has resolved. - N/V, chest pain, fever, chills No unusual foods or recent travel. This initial assessment/diagnostic orders/clinical plan/treatment(s) is/are subject to change based on patients health status, clinical progression and re- assessment by fellow clinical providers in the ED. Further treatment and workup at subsequent clinical providers discretion. Patient/guardian urged not to elope from the ED as their condition may be serious if not clinically assessed and managed. Initial orders include: Labs CT of abdomen
[2020-01-11 21:35] LABS: Eosinophils # (Auto) 0.2 K/mm3 (0.0-0.4); Eosinophils % (Auto) 5.9 % (0.0-4.3); Hematocrit 42.6 % (35.5-45.6); Hemoglobin 14.7 gm/dl (11.8-15.2); Lymphocytes # (Auto) 1.9 K/mm3 (1.2-5.4); Lymphocytes % (Auto) 47.1 % (13.4-35.0); Mean Corpuscular HGB Conc 35 % (32-34); Mean Corpuscular Volume 94 fl (84-94); Monocytes # (Auto) 0.4 K/mm3 (0.0-0.8); Platelet Count 249 K/mm3 (140-440); Red Blood Count 4.51 M/mm3 (3.65-5.03); Red Cell Distribution Width 14.6 % (13.2-15.2)
[2020-01-11 21:52] LABS: Alanine Aminotransferase 44 units/L (7-56); Albumin 3.6 g/dL (3.9-5); BUN/Creatinine Ratio 10; Blood Urea Nitrogen 12 mg/dL (9-20); Calcium 8.4 mg/dL (8.4-10.2); Hemolysis Index 38
--- NOTE | 2020-01-11 22:30 | Cat Scan Report ---
CT ABDOMEN AND PELVIS WITHOUT CONTRAST INDICATION / CLINICAL INFORMATION: left sided abdominal pain. TECHNIQUE: Axial CT images were obtained through the abdomen and pelvis without IV contrast. All CT scans at [facility] location are performed using CT dose reduction for ALARA by means of automated exposure control. COMPARISON: CT of the abdomen and pelvis from 07/31/2019 FINDINGS: LOWER CHEST: No significant abnormality. LIVER: No significant abnormality. GALLBLADDER: No significant abnormality. BILE DUCTS: No significant abnormality. PANCREAS: No significant abnormality. SPLEEN: No significant abnormality. ADRENALS: No significant abnormality. RIGHT KIDNEY and URETER: No significant abnormality. LEFT KIDNEY and URETER: No significant abnormality. STOMACH and SMALL BOWEL: Stomach is unremarkable. No abnormally dilated intestinal loops. Localized i ntussusception of small bowel is noted in the right upper quadrant. As shown on coronal images 32-40, sagittal images 40-55. COLON: No significant abnormality. APPENDIX: Surgically removed. PERITONEUM: No free fluid. No free air. No fluid collection. LYMPH NODES: No adenopathy. AORTA and ARTERIES: No significant abnormality. IVC and VEINS: No significant abnormality. URINARY BLADDER: No significant abnormality. REPRODUCTIVE ORGANS: No significant abnormality. ADDITIONAL FINDINGS: None. SKELETAL SYSTEM: No significant abnormality. IMPRESSION: Small bowel intussusception in the right upper quadrant is likely a transient phenomenon which may or may not be related to the patient's symptoms. No other acute abnormality is identified in the abdome n and pelvis. Previous appendectomy. Signer Name: Cory Kaur MD Signed: 01/11/2020 10:26 PM Workstation Name: [id number]
[2020-01-12] MEDS ORDERED: HYOSCYAMINE SUBL 0.125 MG TAB SL ONE (00:06)
[2020-01-12] MEDS ORDERED: ONDANSETRON 4 MG/2 ML INJ IV STA (00:06)
[2020-01-12] MEDS ORDERED: SODIUM CHLORIDE 0.9% 1000 ML 1,000 ML IV ONE (00:06)
[2020-01-12 00:11] LABS: Bilirubin,Urine NEG (Negative); Blood,Urine NEG (Negative); Color,Urine Yellow (Yellow); Mucus,Urine 1+ /HPF; Protein,Urine <15 mg/dL mg/dL (Negative); RBC,Urine < 1.0 /HPF (0.0-6.0); Urobilinogen,Urine < 2.0 mg/dL (<2.0); WBC,Urine < 1.0 /HPF (0.0-6.0)
--- NOTE | 2020-01-12 01:46 | Emergency Department Report ---
ED Abdominal Pain HPI - General Chief Complaint: Back Pain/Injury Stated Complaint: SIDE PAIN Time Seen by Provider: 01/11/20 21:14 Source: patient Mode of arrival: Ambulatory Limitations: No Limitations - History of Present Illness MD Complaint: abdominal pain - Related Data Previous Rx's Medication Instructions Recorded Last Taken Type oxyCODONE /ACETAMINOPHEN [Percocet 1 tab PO Q6HR PRN #15 tablet 08/01/19 Unknown Rx 5/325] Hyoscyamine Subl [Levsin Sl 0.125 0.125 mg SL Q6HR PRN #20 tab 01/12/20 Unknown Rx TAB] Ondansetron [Zofran ODT TAB] 8 mg PO Q12HR #14 tab.rapdis 01/12/20 Unknown Rx Allergies Allergy/AdvReac Type Severity Reaction Status Date / Time No Known Allergies Allergy Verified 07/31/19 15:45 ED Review of Systems ROS: Stated complaint: SIDE PAIN Other details as noted in HPI Comment: All other systems reviewed and negative ED Past Medical Hx - Past Medical History Previous Medical History?: No Hx Congestive Heart Failure: No Hx Diabetes: No Hx Asthma: No Hx COPD: No Hx HIV: No - Surgical History Past Surgical History?: Yes Hx Appendectomy: Yes - Social History Smoking Status: Current Every Day Smoker Substance Use Type: None - Medications Home Medications: Home Medications Medication Instructions Recorded Confirmed Last Taken Type oxyCODONE /ACETAMINOPHEN [Percocet 1 tab PO Q6HR PRN #15 tablet 08/01/19 Unknown Rx 5/325] Hyoscyamine Subl [Levsin Sl 0.125 0.125 mg SL Q6HR PRN #20 tab 01/12/20 Unknown Rx TAB] Ondansetron [Zofran ODT TAB] 8 mg PO Q12HR #14 tab.rapdis 01/12/20 Unknown Rx ED Physical Exam - General Limitations: No Limitations General appearance: alert, in no apparent distress - Head Head exam: Present: atraumatic, normocephalic - Eye Eye exam: Present: normal appearance, PERRL, EOMI Pupils: Present: normal accommodation - ENT ENT exam: Present: normal exam, mucous membranes moist, TM's normal bilaterally - Neck Neck exam: Present: normal inspection, full ROM - Respiratory Respiratory exam: Present: normal lung sounds bilaterally. Absent: respiratory distress, wheezes, rales, chest wall tenderness, accessory muscle use - Cardiovascular Cardiovascular Exam: Present: regular rate, normal rhythm. Absent: systolic murmur, diastolic murmur, rubs, gallop - GI/Abdominal GI/Abdominal exam: Present: soft, tenderness, normal bowel sounds, other. Abse nt: guarding, rebound, mass (No Rovsing no Mercedes Serrano, no Praveen sign, no tenderness at McBurney's, no Fuller sign.), bruit, pulsatile mass - Rectal Rectal exam: Present: deferred - Extremities Exam Extremities exam: Present: normal inspection, full ROM, normal capillary refill. Absent: tenderness, calf tenderness - Back Exam Back exam: Present: normal inspection. Absent: CVA tenderness (R), CVA tenderness (L) - Neurological Exam Neurological exam: Present: alert, oriented X3, CN II-XII intact, normal gait, motor sensory deficit - Psychiatric Psychiatric exam: Present: normal affect, normal mood - Skin Skin exam: Present: warm, dry, intact, normal color. Absent: rash ED Course Vital Signs 01/11/20 20:28 Temperature 98.3 F Pulse Rate 91 H Respiratory 18 Rate Blood Pressure 128/80 O2 Sat by Pulse 99 Oximetry - Consultations Consultation #1: 01/12/20 01:[address] Peng of general surgery who advised no need for admission. At this present time there is no signs of any obstructions or masses the patient is tolerating oral and pain is very well controlled ED Medical Decision Making - Lab Data Result diagrams: 01/11/20 21:21 01/11/20 21:21 - Radiology Data Radiology results: report reviewed [facility] [address] [place] [address] Cat Scan Report Signed Patient: LOU PATEL MR#: [id number] : 1975 Acct:[id number] Age/Sex: 44 / M ADM Date: 01/11/20 Loc: ED Attending Dr: Ordering Physician: JOSEPHINE RASMUSSEN Date of Service: 01/11/20 Procedure(s): CT abdomen pelvis wo con Accession Number(s): [id number] cc: JOSEPHINE RASMUSSEN CT ABDOMEN AND PELVIS WITHOUT CONTRAST INDICATION / CLINICAL INFORMATION: left sided abdominal pain. TECHNIQUE: Axial CT images were obtained through the abdomen and pelvis without IV contrast. All CT scans at this location are performed using CT dose reduction for ALARA by means of automated exposure control. COMPARISON: CT of the abdomen and pelvis from 07/31/2019 FINDINGS: LOWER CHEST: No significant abnormality. LIVER: No significant abnormality. GALLBLADDER: No significant abnormality. BILE DUCTS: No significant abnormality. PANCREAS: No significant abnormality. SPLEEN: No significant abnormality. ADRENALS: No significant abnormality. RIGHT KIDNEY and URETER: No significant abnormality. LEFT KIDNEY and URETER: No significant abnormality. STOMACH and SMALL BOWEL: Stomach is unremarkable. No abnormally dilated intestinal loops. Localized intussusception of small bowel is noted in the right upper quadrant. As shown on coronal images 32- 40, sagittal images 40-55. COLON: No significant abnormality. APPENDIX: Surgically removed. PERITONEUM: No free fluid. No free air. No fluid collection. LYMPH NODES: No adenopathy. AORTA and ARTERIES: No significant abnormality. IVC and VEINS: No significant abnormality. URINARY BLADDER: No significant abnormality. REPRODUCTIVE ORGANS: No significant abnormality. ADDITIONAL FINDINGS: None. SKELETAL SYSTEM: No significant abnormality. IMPRESSION: Small bowel intussusception in the right upper quadrant is likely a transient phenomenon which may or may not be related to the patient's symptoms. No other acute abnormality is identified in the abdomen and pelvis. Previous appendectomy. Signer Name: Cory Kaur MD Signed: 01/11/2020 10:26 PM Workstation Name: [id number] Transcribed By: DMNury Dictated By: Cory Kaur MD Electronically Authenticated By: Cory Kaur MD Signed Date/Time: 01/11/202225 DD/ 20 TD/TT: - Medical Decision Making This patient presents with abdominal pain of unclear etiology. A CT scan was performed to evaluate for potential causes of the abdominal pain, however, neither the clinical exam nor the CT has identified an emergent etiology for the abdominal pain. CT scan did show intussusception to the right upper quadrant there is no obstructions no perforations no other urgent or emergent pathology. Specifically, given the the physical examination exam, the laboratory studies, and CT, as well as discussion with the general surgeon I have a very low suspicion for appendicitis, ischemic bowel, bowel perforation, or any other life threatening disease. I have discussed with the patient the level of uncertainty with undifferentiated abdominal pain and clearly explained the need to follow-up as noted on the discharge instructions, or return to the Emergency Department immediately if the pain worsens, develops fever, persistent and uncontrollable vomiting, or for any new symptoms or concerns. Critical care attestation.: If time is entered above; I have spent that time in minutes in the direct care of this critically ill patient, excluding procedure time. ED Disposition Clinical Impression: Abdominal pain, Intussusception Disposition: TO HOME OR SELFCARE Is pt being admited?: No Does the pt Need Aspirin: No Condition: Stable Instructions: Abdominal Pain (ED) Prescriptions: Hyoscyamine Subl [Levsin Sl 0.125 TAB] 0.125 mg SL Q6HR PRN #20 tab PRN Reason: abdominal cramps and spasms Ondansetron [Zofran ODT TAB] 8 mg PO Q12HR #14 tab.nishant Referrals: MERRILL WOLFFPITMAN MD MARILYN [Primary Care Provider] - 24 Hours [facility] [Provider Group] - 3-5 Days
[2020-01-12 02:29] VITALS: BP 120/86
== END 2020-01-12 02:00 | disposition home or self-care (01) ==
LOC: ED 20:24
DX: K56.1 Intussusception (principal); R10.9 Unspecified abdominal pain; F17.200 Nicotine dependence, unspecified, uncomplicated; Z79.899 Other long term (current) drug therapy; Z90.49 Acquired absence of other specified parts of digestive tract
CPT/HCPCS: 36415; 74176; 80053; 81001; 83690; 85025; 96374; 99284; J2405; J7030

== ENCOUNTER 2020-12-31 07:24 | Emergency (ER) | payer SELFPAY ==
--- NOTE | 2020-12-31 08:05 | Event Note ---
ED Screening Note ED Screening Note: diffuse abd pain p eating brownie with escasy in it n/v/d vss This initial assessment/diagnostic orders/clinical plan/treatment(s) is/are subject to change based on patients health status, clinical progression and re- assessment by fellow clinical providers in the ED. Further treatment and workup at subsequent clinical providers discretion. Patient/guardian urged not to elope from the ED as their condition may be serious if not clinically assessed and managed. Initial orders include: labs ua
[2020-12-31 08:14] LABS: Hemoglobin 15.4 gm/dl (11.8-15.2); Mean Corpuscular HGB Conc 34 % (32-34); Mean Corpuscular Volume 96 fl (84-94); Platelet Count 252 K/mm3 (140-440); Red Blood Count 4.67 M/mm3 (3.65-5.03); Red Cell Distribution Width 13.9 % (13.2-15.2)
[2020-12-31 08:38] LABS: Alanine Aminotransferase 46 units/L (7-56); Albumin 4.4 g/dL (3.9-5); BUN/Creatinine Ratio 15; Blood Urea Nitrogen 19 mg/dL (9-20); Calcium 9.2 mg/dL (8.4-10.2); Hemolysis Index 19
--- NOTE | 2020-12-31 09:02 | Emergency Department Report ---
ED General Adult HPI - General Chief complaint: Abdominal Pain Stated complaint: STOMACH PAIN Time Seen by Provider: 12/31/20 07:53 Source: patient Mode of arrival: Ambulatory Limitations: No Limitations - History of Present Illness Initial comments: 45-year-old male admits polysubstance abuse he states with edibles containing MDMA. He complains of vague and mostly left-sided abdominal discomfort which is crampy. He has not been vomiting. He has had no signs of GI bleeding. He denies fever chills or change in his bowel movements. Patient had a laparoscopic appendectomy a few years ago at this facility. He has had no ongoing problems from the procedure. He does not follow-up with primary care regularly. -: Gradual, hour(s) Location: abdomen Radiation: non-radiation Quality: other (Crampy) Consistency: intermittent Improves with: none Worsens with: other (Substance abuse) Associated Symptoms: denies other symptoms Treatments Prior to Arrival: none - Related Data Allergies Allergy/AdvReac Type Severity Reaction Status Date / Time No Known Allergies Allergy Verified 12/31/20 09:02 ED Review of Systems ROS: Stated complaint: STOMACH PAIN Other details as noted in HPI Constitutional: denies: chills, fever Eyes: denies: eye pain, eye discharge, vision change ENT: denies: ear pain, throat pain Respiratory: denies: cough, shortness of breath, wheezing Cardiovascular: denies: chest pain, palpitations Endocrine: no symptoms reported Gastrointestinal: abdominal pain. denies: nausea, diarrhea Genitourinary: denies: urgency, dysuria Musculoskeletal: denies: back pain, joint swelling, arthralgia Skin: denies: rash, lesions Neurological: denies: headache, weakness, paresthesias Psychiatric: denies: anxiety, depression Hematological/Lymphatic: denies: easy bleeding, easy bruising ED Past Medical Hx - Past Medical History Hx Congestive Heart Failure: No Hx Diabetes: No Hx Asthma: No Hx COPD: No Hx HIV: No - Surgical History Hx Appendectomy: Yes - Social History Smoking Status: Current Every Day Smoker Substance Use Type: Alcohol, Marijuana, Other ED Physical Exam - General Limitations: No Limitations General appearance: alert, in no apparent distress - Head Head exam: Present: atraumatic, normocephalic - Eye Eye exam: Present: normal appearance. Absent: scleral icterus - ENT ENT exam: Present: mucous membranes moist - Neck Neck exam: Present: normal inspection - Respiratory Respiratory exam: Present: normal lung sounds bilaterally. Absent: respiratory distress - Cardiovascular Cardiovascular Exam: Present: regular rate, normal rhythm. Absent: systolic murmur, diastolic murmur, rubs, gallop - GI/Abdominal GI/Abdominal exam: Present: soft, normal bowel sounds, other (Completely normal exam. Previous lab appendectomy scars are noted and well-healed). Absent: distended, tenderness, guarding, rebound, rigid - Rectal Rectal exam: Present: deferred - Extremities Exam Extremities exam: Present: normal inspection - Back Exam Back exam: Present: normal inspection - Neurological Exam Neurological exam: Present: alert, oriented X3, CN II-XII intact. Absent: motor sensory deficit - Psychiatric Psychiatric exam: Present: normal affect, normal mood - Skin Skin exam: Present: warm, dry, intact, normal color. Absent: rash ED Course Vital Signs 12/31/20 07:47 Temperature 97.9 F Pulse Rate 100 H Respiratory 20 Rate Blood Pressure 123/72 O2 Sat by Pulse 100 Oximetry - Reevaluation(s) Reevaluation #1: Patient states "the saline put me back". He is now asymptomatic. His abdomen is benign/nontender. He has no complaints and feels ready to be discharged. 12/31/20 11:09 ED Medical Decision Making - Lab Data Result diagrams: 12/31/20 08:09 12/31/20 07:56 Laboratory Results - last 24 hr 12/31/20 12/31/20 07:56 08:09 WBC 7.2 RBC 4.67 Hgb 15.4 H Hct 45.0 MCV 96 H MCH 33 H MCHC 34 RDW 13.9 Plt Count 252 Sodium 136 L Potassium 4.1 Chloride 98.3 Carbon Dioxide 27 Anion Gap 15 BUN 19 Creatinine 1.3 Estimated GFR > 60 BUN/Creatinine Ratio 15 Glucose 107 H Calcium 9.2 Total Bilirubin 0.70 AST 64 H ALT 46 Alkaline Phosphatase 80 Total Protein 7.0 Albumin 4.4 Albumin/Globulin Ratio 1.7 Lipase 26 Laboratory Results - last 24 hr 12/31/20 12/31/20 12/31/20 07:56 08:01 08:09 WBC 7.2 RBC 4.67 Hgb 15.4 H Hct 45.0 MCV 96 H MCH 33 H MCHC 34 RDW 13.9 Plt Count 252 Sodium 136 L Potassium 4.1 Chloride 98.3 Carbon Dioxide 27 Anion Gap 15 BUN 19 Creatinine 1.3 Estimated GFR > 60 BUN/Creatinine Ratio 15 Glucose 107 H Calcium 9.2 Total Bilirubin 0.70 AST 64 H ALT 46 Alkaline Phosphatase 80 Total Protein 7.0 Albumin 4.4 Albumin/Globulin Ratio 1.7 Lipase 26 Urine Color Yellow Urine Turbidity Clear Urine pH 5.0 Ur Specific [place] 1.025 Urine Protein 30 mg/dl Urine Glucose (UA) Neg Urine Ketones Neg Urine Blood Neg Urine Nitrite Neg Urine Bilirubin Neg Urine Urobilinogen 2.0 Ur Leukocyte Esterase Neg Urine WBC (Auto) 3.0 Urine RBC (Auto) 1.0 Urine Mucus Few Urine Sperm 3+ Critical care attestation.: If time is entered above; I have spent that time in minutes in the direct care of this critically ill patient, excluding procedure time. ED Disposition Clinical Impression: Amphetamine abuse Abdominal pain Qualifiers: Abdominal location: left lower quadrant Qualified Code(s): R10.32 - Left lower quadrant pain Disposition: DC- TO HOME OR SELFCARE Is pt being admited?: No Does the pt Need Aspirin: No Condition: Stable Instructions: Abdominal Pain, Adult, [id number], Amphetamines Use Disorder Additional Instructions: Return any acute change or problem. Obviously do not abuse drugs. Increase fluids. Follow-up with primary care clinic. Referrals: PRIMARY MD ANSELMO [Primary Care Provider] - 3-5 Days [facility] [Provider Group] - 3-5 Days Time of Disposition: 11:13
[2020-12-31 09:53] LABS: Bilirubin,Urine NEG (Negative); Blood,Urine NEG (Negative); Color,Urine Yellow (Yellow); Mucus,Urine FEW /HPF; Sperm,Urine 3+ /HPF (NP)
[2020-12-31] MEDS ORDERED: SODIUM CHLORIDE 0.9% 1000 ML 1,000 ML IV ONE (10:04)
[2020-12-31 10:32] LABS: Benzodiazepines Screen,Urine Negative; Cocaine Screen,Urine Negative; Methadone Screen,Urine Negative; Opiate Screen,Urine Negative
[2020-12-31 11:07] LABS: Amphetamine Screen,Urine PRESUMPTIVE POSITIVE; Cannabinoid Screen,Urine PRESUMPTIVE POSITIVE
[2020-12-31 11:30] VITALS: BP 117/89
== END 2020-12-31 11:39 | disposition home or self-care (01) ==
LOC: ED 07:24
DX: F15.10 Other stimulant abuse, uncomplicated (principal); R10.32 Left lower quadrant pain; F12.90 Cannabis use, unspecified, uncomplicated; F17.200 Nicotine dependence, unspecified, uncomplicated; Z90.49 Acquired absence of other specified parts of digestive tract
CPT/HCPCS: 36415; 80053; 80307; 81001; 83690; 85027; 96360; 99283; J7030

== ENCOUNTER 2021-02-18 03:58 | Emergency (ER) | payer SELFPAY ==
[2021-02-18 05:27] LABS: Basophils % (Auto) 0.7 % (0.0-1.8); Eosinophils # (Auto) 0.3 K/mm3 (0.0-0.4); Eosinophils % (Auto) 7.2 % (0.0-4.3); Hematocrit 40.5 % (35.5-45.6); Hemoglobin 13.9 gm/dl (11.8-15.2); Lymphocytes # (Auto) 1.2 K/mm3 (1.2-5.4); Lymphocytes % (Auto) 26.9 % (13.4-35.0); Mean Corpuscular HGB Conc 34 % (32-34); Mean Corpuscular Volume 97 fl (84-94); Monocytes # (Auto) 0.6 K/mm3 (0.0-0.8); Monocytes % (Auto) 14.7 % (0.0-7.3); Platelet Count 211 K/mm3 (140-440); Red Blood Count 4.19 M/mm3 (3.65-5.03); Red Cell Distribution Width 13.9 % (13.2-15.2)
[2021-02-18 05:47] LABS: Alanine Aminotransferase 46 units/L (7-56); Albumin 4.3 g/dL (3.9-5); BUN/Creatinine Ratio 12; Blood Urea Nitrogen 14 mg/dL (9-20); Calcium 8.7 mg/dL (8.4-10.2); Hemolysis Index 3
[2021-02-18 07:07] LABS: Bilirubin,Urine NEG (Negative); Blood,Urine NEG (Negative); Color,Urine Colorless (Yellow); Protein,Urine <15 mg/dL mg/dL (Negative); RBC,Urine < 1.0 /HPF (0.0-6.0); Urobilinogen,Urine < 2.0 mg/dL (<2.0)
[2021-02-18 07:18] LABS: WBC,Urine < 1.0 /HPF (0.0-6.0)
[2021-02-18] MEDS ORDERED: SODIUM CHLORIDE 0.9% 1000 ML 1,000 ML IV ONE (10:44)
[2021-02-18] MEDS ORDERED: MORPHINE 2 MG/1 ML INJ IV ONE (10:44)
[2021-02-18] MEDS ORDERED: ONDANSETRON 4 MG/2 ML INJ IV ONE (10:44)
--- NOTE | 2021-02-18 10:47 | Emergency Department Report ---
ED Abdominal Pain HPI - General Chief Complaint: Abdominal Pain Stated Complaint: ABDOMINAL PAIN Time Seen by Provider: 02/18/21 10:15 Source: patient Mode of arrival: Ambulatory Limitations: No Limitations - History of Present Illness Initial Comments: 45-year-old male, no past medical history, presents to ED with abdominal pain x2 days. Patient reports pain in the left lower quadrant with associated nausea and vomiting. Patient states he had diarrhea on the first day but none since. He denies any fever, dysuria, hematuria, urinary frequency, or testicular pain. Patient reports tobacco use, marijuana use, occasional EtOH use. MD Complaint: abdominal pain -: days(s) (2) Location: LLQ Radiation: none Migration to: no migration Severity: moderate Quality: cramping Consistency: constant Improves With: nothing Worsens With: nothing Associated Symptoms: nausea, vomiting, diarrhea. denies: fever, dysuria, hematuria - Related Data Previous Rx's Medication Instructions Recorded Last Taken Type Dicyclomine [Bentyl] 20 mg PO QID PRN #20 tablet 02/18/21 Unknown Rx Ondansetron [Zofran Odt] 4 mg PO Q8HR PRN #20 tab.rapdis 02/18/21 Unknown Rx Allergies Allergy/AdvReac Type Severity Reaction Status Date / Time No Known Allergies Allergy Verified 12/31/20 09:02 ED Review of Systems ROS: Stated complaint: ABDOMINAL PAIN Other details as noted in HPI Comment: All other systems reviewed and negative Constitutional: denies: chills, fever Gastrointestinal: abdominal pain, nausea, vomiting, diarrhea Genitourinary: denies: dysuria, frequency, hematuria, testicular pain ED Past Medical Hx - Past Medical History Previous Medical History?: No Hx Congestive Heart Failure: No Hx Diabetes: No Hx Asthma: No Hx COPD: No Hx HIV: No - Surgical History Hx Appendectomy: Yes - Social History Smoking Status: Current Every Day Smoker Substance Use Type: Alcohol, Marijuana - Medications Home Medications: Home Medications Medication Instructions Recorded Confirmed Last Taken Type Dicyclomine [Bentyl] 20 mg PO QID PRN #20 tablet 02/18/21 Unknown Rx Ondansetron [Zofran Odt] 4 mg PO Q8HR PRN #20 tab.rapdis 02/18/21 Unknown Rx ED Physical Exam - General Limitations: No Limitations General appearance: alert, in no apparent distress - Head Head exam: Present: atraumatic, normocephalic - Eye Eye exam: Present: normal appearance, EOMI - ENT ENT exam: Present: mucous membranes moist - Neck Neck exam: Present: normal inspection - Respiratory Respiratory exam: Present: normal lung sounds bilaterally. Absent: respiratory distress - Cardiovascular Cardiovascular Exam: Present: regular rate, normal rhythm - GI/Abdominal GI/Abdominal exam: Present: soft, tenderness (LLQ tenderness). Absent: distended - Extremities Exam Extremities exam: Present: normal inspection - Neurological Exam Neurological exam: Present: alert, oriented X3 - Psychiatric Psychiatric exam: Present: normal affect, normal mood - Skin Skin exam: Present: warm, dry, intact, normal color ED Course Vital Signs 02/18/21 02/18/21 02/18/21 05:06 11:02 11:49 Temperature 99.0 F Pulse Rate 114 H 98 H Respiratory 18 20 20 Rate Blood Pressure 136/76 Blood Pressure 138/72 [Left] O2 Sat by Pulse 98 99 Oximetry ED Medical Decision Making - Lab Data Result diagrams: 02/18/21 05:08 02/18/21 05:08 - Radiology Data Radiology results: report reviewed, image reviewed - Medical Decision Making 45-year-old male presents to ED with 2-day history of abdominal pain. Labs are normal. CT shows evidence of enteritis. Patient tachycardic upon initial presentation, however his tachycardia resolved without intervention. Patient received IV fluids, pain medication and nausea medication. He is feeling much better at this time. Patient completed p.o. challenge. He feels comfortable with discharge home. Outpatient follow-up advised, return precautions given. - Differential Diagnosis Diverticulitis, gastroenteritis, UTI Critical care attestation.: If time is entered above; I have spent that time in minutes in the direct care of this critically ill patient, excluding procedure time. ED Disposition Clinical Impression: Acute gastroenteritis Disposition: DC-01 TO HOME OR SELFCARE Is pt being admited?: No Condition: Stable Instructions: Viral Gastroenteritis, Adult, [id number] Prescriptions: Dicyclomine [Bentyl] 20 mg PO QID PRN #20 tablet PRN Reason: abdominal pain Ondansetron [Zofran Odt] 4 mg PO Q8HR PRN #20 tab.rapdis PRN Reason: Vomiting Referrals: PRIMARY CARE,MD [Primary Care Provider] - 3-5 Days Forms: Work/School Release Form(ED) Time of Disposition: 13:56
[2021-02-18 11:49] VITALS: BP 138/72
--- NOTE | 2021-02-18 13:46 | Cat Scan Report ---
CT ABDOMEN AND PELVIS WITH CONTRAST HISTORY: Left lower quadrant abdominal pain COMPARISON: 02/15/2020 TECHNIQUE: Axial CT images were obtained through the abdomen and pelvis after 100 cc of IV contrast. Sagittal and coronal reformatted images. All CT scans at this location are performed using CT dose re duction for ALARA by means of automated exposure control. FINDINGS: CT ABDOMEN: Lung Bases: Clear. Liver: No significant abnormality. Biliary: No significant abnormality. Spleen: No significant abnormality. Unenlarged. Pancreas: No significant abnormality. Adrenals: No significant abnormality. Kidneys: No significant abnormality. Lymphatics: No lymphadenopathy. Vasculature: No significant abnormality. Bowel/Peritoneum: There is moderate fluid in nondilated distal small bowel loops. Moderate fecal dede er is present throughout the colon. No evidence for obstruction or focal inflammation. The appendix i s not confidently identified. CT PELVIS: : No significant abnormality. Osseous Structures: No significant abnormality. Additional Findings: None IMPRESSION: No acute inflammatory process is appreciated. Mild fecal retention. Fluid-filled small bowel loops could represent a nonspecific enteritis. Please correlate with the patient's clinical presentation. Signer Name: Todd Esparza Jr, MD Signed: 02/18/2021 1:41 PM Workstation Name: [id number]
== END 2021-02-18 14:17 | disposition home or self-care (01) ==
LOC: ED 03:58
DX: K52.89 Other specified noninfective gastroenteritis and colitis (principal); F17.200 Nicotine dependence, unspecified, uncomplicated; F12.10 Cannabis abuse, uncomplicated; Z79.899 Other long term (current) drug therapy; Z90.49 Acquired absence of other specified parts of digestive tract
CPT/HCPCS: 36415; 74177; 80053; 81001; 85025; 96361; 96374; 96375; 99284; J2270; J2405; J7030; Q9967

== ENCOUNTER 2021-07-26 02:24 | Emergency (ER) | payer SELFPAY ==
[2021-07-26 02:49] VITALS: BP 130/91
--- NOTE | 2021-07-26 04:05 | Emergency Department Report ---
ED General Adult HPI - General Chief complaint: Abdominal Pain Stated complaint: RIB PAIN Time Seen by Provider: 07/26/21 03:56 Source: patient Mode of arrival: Ambulatory Limitations: No Limitations - History of Present Illness Initial comments: [age]-year-old [place] male with continued pain to the right after his injury on 07/24/2021 76. X-ray showed no fractures and he was discharged home on pain medications and follow-up with follow-up with recommended provider pain medication as prescribed. For hemoptysis no hematemesis no fever, chills, sweat s -: Gradual, Sudden Radiation: non-radiation Quality: aching, dull Consistency: constant Improves with: none Worsens with: none Associated Symptoms: denies other symptoms. denies: cough, diaphoresis, loss of appetite, malaise, nausea/vomiting, syncope Treatments Prior to Arrival: none - Related Data Previous Rx's Medication Instructions Recorded Last Taken Type Dicyclomine [Bentyl] 20 mg PO QID PRN #20 tablet 02/18/21 Unknown Rx Ondansetron [Zofran Odt] 4 mg PO Q8HR PRN #20 tab.rapdis 02/18/21 Unknown Rx traMADoL [Ultram] 50 mg PO Q6HR PRN #14 tablet 07/26/21 Unknown Rx Allergies Allergy/AdvReac Type Severity Reaction Status Date / Time No Known Allergies Allergy Verified 12/31/20 09:02 ED Review of Systems ROS: Stated complaint: RIB PAIN Other details as noted in HPI Comment: All other systems reviewed and negative ED Past Medical Hx - Past Medical History Previous Medical History?: No Hx Congestive Heart Failure: No Hx Diabetes: No Hx Asthma: No Hx COPD: No Hx HIV: No - Surgical History Past Surgical History?: Yes Hx Appendectomy: Yes - Social History Smoking Status: Current Every Day Smoker Substance Use Type: Alcohol, Marijuana - Medications Home Medications: Home Medications Medication Instructions Recorded Confirmed Last Taken Type Dicyclomine [Bentyl] 20 mg PO QID PRN #20 tablet 02/18/21 Unknown Rx Ondansetron [Zofran Odt] 4 mg PO Q8HR PRN #20 tab.rapdis 02/18/21 Unknown Rx traMADoL [Ultram] 50 mg PO Q6HR PRN #14 tablet 07/26/21 Unknown Rx ED Physical Exam - General Limitations: No Limitations General appearance: alert, in no apparent distress - Head Head exam: Present: atraumatic, normocephalic - Eye Eye exam: Present: normal appearance, PERRL - ENT ENT exam: Present: normal exam, mucous membranes moist - Neck Neck exam: Present: normal inspection - Respiratory Respiratory exam: Present: normal lung sounds bilaterally, chest wall tenderness (To the right rib region). Absent: respiratory distress - Cardiovascular Cardiovascular Exam: Present: regular rate, normal rhythm. Absent: systolic murmur, diastolic murmur, rubs, gallop - GI/Abdominal GI/Abdominal exam: Present: soft, normal bowel sounds - Rectal Rectal exam: Present: deferred - Extremities Exam Extremities exam: Present: normal inspection - Back Exam Back exam: Present: normal inspection - Neurological Exam Neurological exam: Present: alert, oriented X3 - Psychiatric Psychiatric exam: Present: normal affect, normal mood - Skin Skin exam: Present: warm, dry, intact, normal color. Absent: rash ED Course Vital Signs 07/26/21 02:47 Temperature 97.8 F Pulse Rate 109 H Respiratory 18 Rate Blood Pressure 130/91 O2 Sat by Pulse 98 Oximetry ED Medical Decision Making - Radiology Data Radiology results: report reviewed [address] [place] [address] XRay Report Signed Patient: LOU PATEL MR#: [id number] : 1975 Acct:[id number] Age/Sex: 45 / M ADM Date: 07/14/21 Loc: ED Attending Dr: Ordering Physician: ANA LAGUNA Date of Service: 07/14/21 Procedure(s): XR ribs UNI w PA Chest 3+V RT Accession Number(s): [id number] cc: ANA LAGUNA Fluoro Time In Minutes: PA CHEST AND RIGHT RIB DETAIL 5 VIEWS INDICATION / CLINICAL INFORMATION: Fall with right rib pain. COMPARISON: CXR 05/14/20. FINDINGS: The heart size and pulmonary vasculature are normal. The lungs are clear. There is no evidence of pneumothorax or pleural effusion. I see no evidence of an acute rib fracture or other significant abnormality. Signer Name: Victor M Gallo MD Signed: 07/14/2021 2:31 PM Workstation Name: [id number] Transcribed By: RT Dictated By: Victor M Gallo MD Electronically Authenticated By: Victor M Gallo MD Signed Date/Time: 07/14/211430 DD/ 29 TD/TT: Print Critical care attestation.: If time is entered above; I have spent that time in minutes in the direct care of this critically ill patient, excluding procedure time. ED Disposition Clinical Impression: Contusion of rib on right side Disposition: HOME / SELF CARE / HOMELESS Condition: Stable Instructions: Contusion, How to Use Cold Therapy Additional Instructions: Evaluate emergency department today for right-sided chest pain found to be secondary to your previous rib contusion which was seen evaluated for on 07/14/2021. Your evaluation today she has shown no medical conditions requiring intervention at this time. however recommend that you follow-up with your primary care physician or your deburring machine operator soon as possible for further testing as an outpatient. Please schedule an appointment for follow-up with your primary care physician as soon as possible. Return to emergency department if you expands worsening uncontrolled chest pain, shortness of breath, lightheadedness, coughing up blood, or sustaining more blunt trauma to the injury site feeling faint, nausea, vomiting or any other concerning symptoms. Prescriptions: traMADoL [Ultram] 50 mg PO Q6HR PRN #14 tablet PRN Reason: Pain Referrals: [facility] [Provider Group] - 3-5 Days
== END 2021-07-26 06:43 | disposition home or self-care (01) ==
LOC: ED 02:24
DX: S20.211A Contusion of right front wall of thorax, initial encounter (principal); F17.200 Nicotine dependence, unspecified, uncomplicated; F10.20 Alcohol dependence, uncomplicated; F12.90 Cannabis use, unspecified, uncomplicated; Z90.89 Acquired absence of other organs; X58.XXXA Exposure to other specified factors, initial encounter; Y93.89 Activity, other specified; Y92.89 Other specified places as the place of occurrence of the external cause; Y99.8 Other external cause status
CPT/HCPCS: 99281